=== PATIENT | female | born 1970 | race Caucasian/White ===

== ENCOUNTER 2022-11-15 00:10 | Emergency (ER) | payer MEDICAID ==
[~2022-11-15] VITALS: Ht 12.7 cm; Wt 0.9 kg
[2022-11-15 00:41] VITALS: BP 138/82; PULSE 70; RESP 20; TEMP 97.7; O2SAT 98
--- NOTE | 2022-11-15 00:50 | NUR ---
PT WENT TO THE LOBBY
[2022-11-15] MEDS ORDERED: KETOROLAC 30 MG/ML VIAL IM ONE (01:45)
[2022-11-15] MEDS ORDERED: CYCLOBENZAPRINE 10 MG TAB PO ONE (01:45)
[2022-11-15] MEDS ORDERED: DICL100G5 TP (01:52)
[2022-11-15] MEDS ORDERED: LID5T TP (01:52)
[2022-11-15] MEDS ORDERED: CYCL-711 PO (01:52)
[2022-11-15] MEDS ORDERED: IBUP-2213 PO (01:52)
--- NOTE | 2022-11-15 02:03 | NUR ---
DR EXAMING THE PATIENT
[2022-11-15 02:16] VITALS: BP 138/82; PULSE 70; RESP 20; TEMP 97.7; O2SAT 98
--- NOTE | 2022-11-15 02:16 | NUR ---
PT IS AT CHAIR C GETTING THE MEDICATION
--- NOTE | 2022-11-15 03:32 | NUR ---
Patient discharged with v/s stable. Written and verbal after care instructions given and explained. Patient alert, oriented and verbalized understanding of instructions. Ambulatory with steady gait. All questions addressed prior to discharge. ID band removed. Patient advised to follow up with PMD. Rx of FLEXERIL, IBUPROFEN, LIDOCAINE. DICLOFENAC given. Patient educated on indication of medication including possible reaction and side effects. Opportunity to ask questions provided and answered.
== END 2022-11-15 02:16 | disposition home or self-care (01) ==
LOC: MED 00:10
DX: M54.32 Sciatica, left side (principal); E11.9 Type 2 diabetes mellitus without complications; Z79.4 Long term (current) use of insulin; Z79.899 Other long term (current) drug therapy
CPT/HCPCS: 96372; 99283; J1885

== ENCOUNTER 2024-02-12 11:47 | Emergency (ER) | payer MEDICAID, OTHER ==
[~2024-02-12] VITALS: Ht 144.8 cm; Wt 62.1 kg
[~2024-02-12 11:47] MED LIST: CYCL-711 PO; DICL100G32 TP; IBUP-2213 PO; LID5T TP
[2024-02-12 11:51] VITALS: BP 152/81; PULSE 94; RESP 15; TEMP 97.8; O2SAT 96
[2024-02-12] MEDS ORDERED: LID5T TP (13:03)
[2024-02-12] MEDS ORDERED: IBUP-2213 PO (13:03)
[2024-02-12] MEDS ORDERED: METH-1681 PO (13:03)
[2024-02-12] MEDS: IBUPROFEN 600 MG TAB PO ONE (13:12)
== END 2024-02-12 13:30 | disposition home or self-care (01) ==
LOC: MED 11:47
DX: S46.912A Strain of unspecified muscle, fascia and tendon at shoulder and upper arm level, left arm, initial encounter (principal); M65.312 Trigger thumb, left thumb; R03.0 Elevated blood-pressure reading, without diagnosis of hypertension; E11.9 Type 2 diabetes mellitus without complications; E78.5 Hyperlipidemia, unspecified; Z79.899 Other long term (current) drug therapy; X58.XXXA Exposure to other specified factors, initial encounter; Y92.89 Other specified places as the place of occurrence of the external cause; Y93.89 Activity, other specified; Y99.8 Other external cause status
CPT/HCPCS: 82948; 99283